=== PATIENT | female | born 1980 | race Caucasian/White ===

== ENCOUNTER 2019-03-13 13:07 | Emergency (ER) | payer MEDICAID ==
[2019-03-13] MEDS: DEXAMETHASONE 10 MG/ML 1 ML INJ IM (14:51)
[2019-03-13] MEDS: DIAZEPAM 5 MG TAB PO (14:51)
[2019-03-13] MEDS: KETOROLAC 60 MG INJ IM (15:00)
== END 2019-03-13 15:38 | disposition home or self-care (01) ==
LOC: FTE 13:07
DX: M54.5 Low back pain (principal)
CPT/HCPCS: 81025; 96372; 99284-25